=== PATIENT | female | born 1995 | race Hispanic/Latino ===

== ENCOUNTER 2024-09-20 13:09 | Emergency (ER) | payer OTHER ==
[~2024-09-20] VITALS: Ht 160 cm; Wt 134.7 kg
[2024-09-20 15:07] LABS: BASOPHILS % 0.4 % (0.0-1.0); EOSINOPHILS % 0.3 % (0.0-6.0); LYMPHOCYTES % 19.0 % (18.0-39.1); MONOCYTES % 4.5 % (4.4-11.3); NEUTROPHILS % 75.2 % (38.7-80.0); RED CELL DISTRIBUTION WIDTH 14.5 % (11.7-14.4)
[2024-09-20 15:16] LABS: LEUKOCYTE ESTERASE ,URINE NEGATIVE (NEGATIVE); URINE UROBILINOGEN 0.2 mg/dL (0.2 - 1)
[2024-09-20 15:17] LABS: PROTEIN,URINE DIPSTICK 1+ (NEGATIVE)
[2024-09-20] MEDS: SODIUM CHLORIDE 0.9% 1000ML 1,000 ML IV STA (15:17)
[2024-09-20] MEDS: KETOROLAC TROMETHAMINE 30 MG/ML VIAL IV STA (15:17)
[2024-09-20 15:32] LABS: EST GLOMERULAR FILTRATION RATE 121.0 ML/MIN (>=60)
[2024-09-20 15:49] LABS: EPITHELIAL CELLS,URINE MANY /LPF; WBC,URINE (MAN) 0-5 /HPF (0-5)
[2024-09-20] MEDS: HYDROMORPHONE 1MG/1ML INJ IV STA ×2 (16:30→20:22)
[2024-09-20] MEDS: ONDANSETRON HCL INJ 2MG/ML 2ML 2 MG/ML VIAL IV STA ×2 (16:31→21:03)
[2024-09-20 18:57] VITALS: TEMP 99.1
[2024-09-20 22:00] VITALS: PULSE 95; RESP 16
[2024-09-20 23:22] VITALS: BP 134/97; PULSE 89; RESP 19; TEMP 99.6; O2SAT 98
== END 2024-09-20 23:38 | disposition other institution (70) ==
LOC: ER 15:06
DX: R10.2 Pelvic and perineal pain (principal); N83.202 Unspecified ovarian cyst, left side; G89.29 Other chronic pain; F41.9 Anxiety disorder, unspecified
CPT/HCPCS: 36415; 74176; 76830; 76856; 80053; 81001; 84702; 85025; 93976; 99284; J1171; J1885; J2405; J7030